=== PATIENT | male | born 1995 | race Caucasian/White ===

== ENCOUNTER 2016-09-05 13:23 | Emergency (ER) | payer BC ==
[2016-09-05 13:21] LABS: INFLUENZA A NEG (NEG); INFLUENZA B NEG (NEG)
[~2016-09-05 13:23] MED LIST: BENADRYL IV; IBUPROFEN PO; IBUPROFEN800 MG PO; TYLENOL LIQUID; VYVANSE10 MG; ZITHROMAX PO
== END 2016-09-05 13:47 | disposition home or self-care (01) ==
LOC: SED 13:23
PROVIDERS: Nurse Practitioner
DX: J02.9 Acute pharyngitis, unspecified (principal); F90.9 Attention-deficit hyperactivity disorder, unspecified type; Z88.0 Allergy status to penicillin
CPT/HCPCS: 87651; 87804; 99283; J1100

== ENCOUNTER 2016-10-28 00:25 | Emergency (ER) | payer BC, OTHER | END 2016-10-28 01:14 | disposition home or self-care (01) | LOC: SED 00:25 | DX: J06.9 Acute upper respiratory infection, unspecified (principal); Z88.0 Allergy status to penicillin; Z88.1 Allergy status to other antibiotic agents | CPT/HCPCS: 99282 ==

== ENCOUNTER 2016-10-30 01:19 | Emergency (ER) | payer BC, OTHER ==
[2016-10-30] MEDS ORDERED: NO MEDICATIONS (01:33)
== END 2016-10-30 02:03 | disposition home or self-care (01) ==
LOC: SED 01:19
DX: J06.9 Acute upper respiratory infection, unspecified (principal); Z76.0 Encounter for issue of repeat prescription; Z88.0 Allergy status to penicillin; Z88.1 Allergy status to other antibiotic agents
CPT/HCPCS: 99282

== ENCOUNTER 2016-10-31 23:55 | Emergency (ER) | payer BC, OTHER ==
[~2016-10-31 23:55] MED LIST changes: +NO MEDICATIONS
== END 2016-11-01 02:42 | disposition home or self-care (01) ==
LOC: SED 23:55
DX: R05 Cough (principal); F17.210 Nicotine dependence, cigarettes, uncomplicated
CPT/HCPCS: 99282

== ENCOUNTER 2016-11-26 22:23 | Emergency (ER) | payer OTHER ==
[2016-11-26] MEDS ORDERED: KLONOPIN1 MG (22:33)
== END 2016-11-27 00:40 | disposition home or self-care (01) ==
LOC: SED 22:23
DX: F41.9 Anxiety disorder, unspecified (principal); Z88.0 Allergy status to penicillin; Z88.1 Allergy status to other antibiotic agents; Z79.899 Other long term (current) drug therapy
CPT/HCPCS: 99284